=== PATIENT | female | born 1980 | race Caucasian/White ===

== ENCOUNTER 2017-01-24 14:51 | Inpatient (IN) | payer OTHER ==
--- NOTE | ~2017-01-24 | HP ---
Unit #: [id number] #: [id number] Patient: [facility]ARA WARE [id number] [facility] [address] [place] [address] [id number] MR#: [id number] NAME: TARA WARE ROOM: P208 Age: 36 Sex: F Admission Date: 01/24/2017 : 1980 Attending Physician: Oscar Salomon M.D. Admitting Physician: Oscar Salomon M.D. Primary Care Physician: Primary Care Physician No HISTORY AND PHYSICAL HISTORY OF PRESENT ILLNESS Abeba is a 36 year old admitted to [address] [place] [address] with depression verbalizing wanting to hurt herself. She has superficial scratches on her arms. She has had other admissions to this facility. PAST MEDICAL HISTORY 1. Obesity. 2. History of self-harming. PAST SURGICAL HISTORY 1. section x1. 2. Tubal ligation. ALLERGIES No known drug allergies. SOCIAL HISTORY Smokes one-half pack per day. Denies alcohol. Admits to marijuana daily and has a history of abusing methadone. FAMILY HISTORY Medically noncontributory. REVIEW OF SYSTEMS CONSTITUTIONAL: No fever or chills. HEENT: Denies any sore throat, ear pain or runny nose. CARDIOVASCULAR: Denies chest pain, irregular heart rhythm or palpitations. CHEST: Denies shortness of breath or cough. No hemoptysis. GASTROINTESTINAL: Denies nausea, vomiting, diarrhea or chronic constipation. ENDOCRINE: Denies history of increased thirst or urination. No recent significant weight loss or gain. GENITOURINARY: Denies dysuria, frequency, or hematuria. SKIN: Denies any rashes. HEMATOLOGIC: Denies history of increased bleeding or bruising. MUSCULOSKELETAL: Denies any hot, swollen joints. No generalized muscle pain. NEUROLOGIC: Denies problems with vision or speech. No frequent, severe headaches. No numbness, tingling or weakness in any extremities. Denies loss of bladder or bowel control. Unit #: [id number] #: [id number] Patient: TARA WARE CURRENT MEDICATIONS 1. Detox protocol 2. Celexa 20 mg daily PHYSICAL EXAMINATION GENERAL: Alert, well-nourished, in no apparent distress. VITAL SIGNS: Blood pressure 124/74, heart rate 80, respirations 16, temperature 98.6. WEIGHT: 170 pounds. HEIGHT: 5'0". SKIN: Warm and dry without rash. She does have superficial scratches/cuts on her forearm. There is no increased redness, swelling, heat or pus noted. HEENT: Normocephalic. TMs not viewed. Oral and nasal passages clear. Conjunctivae clear. Pupils equal, round and reactive to light and accommodation. Extraocular movements intact. NECK: Supple without lymphadenopathy or thyromegaly. HEART: Regular rate and rhythm without murmur. LUNGS: Clear. ABDOMEN: Soft, nontender. : Not done. EXTREMITIES: No evidence of cyanosis, clubbing or edema. Moves all extremities without focal deficit. NEUROLOGICAL: Grossly within normal limits. Cranial Nerves: II: Visual fox are intact. III, IV AND : Extraocular movements are intact. Pupils are equal, round and reactive to light. V: Facial sensation is grossly normal. VII: Facial movements and expression are normal. VIII: Auditory acuity grossly intact. IX, X: Uvula is midline. Phonation is normal. XI: Patient shrugs shoulders and turns head normally. XII: Tongue protrudes in the midline. Sensory and Motor Function: Sensory and motor sensation is grossly normal. Motor: moves all extremities well. Coordination: Gait is normal. Deep Tendon Reflexes: Intact. IMPRESSION Psychiatric admission RECOMMENDATIONS PSYCHIATRIC: Per psychiatrist. MEDICAL: I see no contraindications to participating in facility's activities. MEDICAL PROGNOSIS Good. MEDICAL CONDITION Stable. Dictated by... Gloria Lopez P.A.-C. for Charmaine Bradley/jennifer Unit #: [id number] #: [id number] Patient: TARA WARE TD: 01/25/2017 19:15 JOB #: [id number] HISTORY AND PHYSICAL Page 1 of 1 X Gloria Lopez HISTORY AND PHYSICAL
--- NOTE | ~2017-01-24 | PA ---
Unit #: [id number] #: [id number] Patient: TARA WARE [id number] [facility] [address] [place] [address] [id number] I MR#: [id number] NAME: TARA WARE ROOM: P208 Age: 36 Sex: F Admission Date: 01/24/2017 : 1980 Date of Assessment: 01/24/2017 Attending Physician: Oscar Salomon M.D. Admitting Physician: Oscar Salomon M.D. Primary Care Physician: Primary Care Physician No PSYCHIATRIC ASSESSMENT DATE OF SERVICE 01/24/2017. IDENTIFYING DATA Ms. Ware is a 36-year-old white female who is a resident of [place], [place] and was self-referred to the hospital on a voluntary basis. CHIEF COMPLAINT "I'm tired of being on heroin, I'm tired of the lifestyle." HISTORY OF PRESENT ILLNESS Ms. Ware is a 36-year-old white female who was self-referred to the hospital stating that she wants to get detox off heroin and that she is tired of being on heroin, "I want to get off it. I'm tired of being depressed. I was seeing a doctor. I could not see the points, so they took me off medication. I have lost my kids, everything. My daughter recently wanted to get into contact with me and if I'm like this I don't know if it happen again." The patient has some superficial cuts on her arms, though she has been cutting herself with a razor and she reports that she had cut on her wrist that she reports was a suicide attempt, but she got scared. She reports that she did that couple days ago. On evaluation by me, the patient was seen to be anxious, withdrawn, depressed, seclusive to herself with blunted affect, minimal interaction, and does endorse increasing stress, financial problems, poor support system, feelings of hopelessness and helplessness, and suicidal ideations, and has history of suicide attempt and reports that she took pills and required hospitalization in the past. SUBSTANCE ABUSE HISTORY The patient has extensive history of substance abuse and dependence including experimentation with cannabis, cocaine, and opioids, and amphetamines, and prescription medications and currently opioids appear to be her drug of choice. She reports that she has been using 0.5 g of heroin a day by snorting it. PAST PSYCHIATRIC HISTORY The patient has had history of inpatient chemical dependency and psychiatric treatment at [facility]. Review of the medical records indicated currently she is not active in any treatment program, is not seeing a psychiatrist, not taking any psychotropic medications. Unit #: [id number] #: [id number] Patient: TARA WARE PAST MEDICAL HISTORY Carpal tunnel syndrome. ALLERGIES No known medication allergies. PERSONAL AND SOCIAL HISTORY A 36-year-old white female who reports that she is single, unemployed, and lives by herself and has poor social support system. MENTAL STATUS EXAMINATION Young white female who was casually dressed with fair personal hygiene, appears to be in no acute distress or discomfort. She was awake and alert on interaction with intact orientation to time, place, and person. Her mood was anxious and depressed with a congruent affect. Her speech was slow and restricted in content. Her thought processes were disorganized with some looseness of associations and suicidal ideations. Her insight and judgment remain significantly impaired. DIAGNOSTIC IMPRESSION Psychiatric: Major depressive disorder, recurrent, moderate, without psychotic features; opioid dependence, moderate and acute withdrawals. Medical: None. Stressors: Moderate psychosocial stressors. TREATMENT PLAN 1. The patient has presented with history of substance abuse and mood disorder, and has been decompensating and will need inpatient hospitalization for safety and stabilization. We will start her back on her home medications and detox protocol will be initiated. We will also consider a trial of antidepressant medication. 2. Supportive therapy was provided to the patient. ESTIMATED LENGTH OF STAY 5 to 7 days. ABILITY TO HELP SELF Limited. WILLINGNESS TO HELP SELF The patient appears to be willing to help self. STRENGTHS 1. Communicative. 2. Cooperative. PROBLEMS 1. Chronic dysphoric symptoms. 2. Poor social support system. DISCHARGE CRITERIA This will be contingent upon the patient's ability to show resolution of her depression and anxiety as well as her ability to stay safe to herself, particularly after discharge from the hospital. Dictated by... Oscar Salomon M.D. Unit #: [id number] #: [id number] Patient: TARA WARE IAA/modl TD: 01/25/2017 23:59 JOB #: [id number] PSYCHIATRIC ASSESSMENT Page 1 of 1 X Oscar Salomon MD PSYCHIATRIC ASSESSMENT
--- NOTE | ~2017-01-24 | DS ---
Unit #: [id number] #: [id number] Patient: [facility]EL[facility] [id number] [facility] [address] [place] [address] [id number] I MR#: [id number] NAME: TARA SELBY ROOM: [facility] Age: 36 Sex: F Admission Date: 01/24/2017 : 1980 Discharge Date: 01/27/2017 Attending Physician: Oscar Salomon M.D. Primary Care Physician: Primary Care Physician No DISCHARGE SUMMARY IDENTIFYING DATA Ms. Selby is a 36-year-old white female, who was self-referred to the hospital. DISCHARGE DIAGNOSES Psychiatric: Major depressive disorder, recurrent, moderate, without psychotic features; opioid dependence, moderate and acute withdrawals. Medical: None. Stressors: Moderate psychosocial stressors. HISTORY OF PRESENT ILLNESS Please see initial psychiatric evaluation for details. PAST PSYCHIATRIC HISTORY Please see initial psychiatric evaluation for details. PAST MEDICAL HISTORY Please see initial psychiatric evaluation for details. HOSPITAL COURSE The patient was admitted to the adult chemical dependency and psychiatric unit at [facility] and was oriented to the hospital environment. Routine p.r.n. medications were initiated, and she was started back on her home medications and was closely monitored. She was started on Celexa for depression and later Seroquel was added and opioid detox protocol was maintained. She was compliant with treatment recommendation and was taking medications regularly and was tolerating them fairly well and was able to show a decent and therapeutic response with improvement in depression and anxiety and was able to come out of the detox without any complications and was willing to continue treatment on an outpatient basis and as such, it was decided that she will be continued on her current medications and will be discharged home and will continue treatment on an outpatient basis. DISCHARGE MEDICATIONS Celexa 20 mg a day for depression and Seroquel 100 mg at bedtime for depression. DISCHARGE CONDITION Stable. PROGNOSIS Fair. Unit #: [id number] #: [id number] Patient: TARA SELBY Dictated by... Charmaine Braga/modl TD: 02/24/2017 23:18 JOB #: [id number] DISCHARGE SUMMARY Page 1 of 1 X Oscar Salomon MD DISCHARGE SUMMARY
--- NOTE | ~2017-01-24 | PN ---
Unit #: [id number] #: [id number] Patient: TARA SELBY [id number] [facility] [address] [place] [address] [id number] I MR#: [id number] NAME: TARA SELBY ROOM: P208 Age: 36 Sex: F Admission Date: 01/24/2017 : 1980 Attending Physician: Oscar Salomon M.D. Admitting Physician: Oscar Salomon M.D. Primary Care Physician: Primary Care Physician Clayr GARAY PROGRESS NOTES DATE January 26, 2017 DISCUSSION Ms. Selby is a 36-year-old white female, who was seen today and chart was reviewed and the case was discussed with the staff. The patient has been anxious, withdrawn, and depressive and was seclusive to herself. Meanwhile, she has been cooperative with the treatment recommendations and she has been taking the medications and tolerating them fairly well. MENTAL STATUS EXAMINATION Young white female, who was casually dressed with fair personal hygiene and appears to be in no acute distress or discomfort. She was awake and alert on interaction with intact orientation. Her mood was anxious and depressed with a congruent affect. Her speech is slow and goal-directed. She denies any suicidal or homicidal ideations, and also denies any auditory or visual hallucinations. Her insight and judgment remain slightly impaired. TREATMENT PLAN 1. We will continue her on her current medications and treatment protocol, and will monitor her response to the medications, and make further adjustments as needed. 2. We will continue to followup. Dictated by... Charmaine Braga/eduard TD: 01/26/2017 11:20 JOB #: [id number] Unit #: [id number] #: [id number] Patient: TARA SELBY PEASALTY PROGRESS NOTES Page 1 of 1 X Oscar Salomon MD PROGRESS NOTE
--- NOTE | ~2017-01-24 | PN ---
Unit #: [id number] #: [id number] Patient: TARA SELBY [id number] [facility] [address] [place] [address] [id number] I MR#: [id number] NAME: TARA SELBY ROOM: P208 Age: 36 Sex: F Admission Date: 01/24/2017 : 1980 Attending Physician: Oscar Salomon M.D. Admitting Physician: Oscar Salomon M.D. Primary Care Physician: Primary Care Physician Clary GARAY PROGRESS NOTES DATE 01/27/2017 DISCUSSION Ms. Selby is a 36-year-old white female with substance abuse and mood disorder who was seen today and chart was reviewed and case was discussed with the staff. She reports doing fairly well and has been showing improvement in her depression and anxiety. Meanwhile, she has been cooperative with treatment recommendations as she has been taking the medications and tolerating them fairly well with no reported side effects. MENTAL STATUS EXAMINATION Young white female who was casually dressed with fair personal hygiene, appears to be in no acute distress or discomfort. She was awake and alert on interaction with intact orientation. Her mood was anxious with congruent affect. Her speech was slow and goal-directed. She denies any suicidal or homicidal ideations. Her insight and judgement remains slightly impaired. TREATMENT PLAN 1. We will continue her on her current medications and treatment protocol. We will monitor her response to the medication and make further adjustments as needed. 2. We will continue to follow up. Dictated by... Charmaine Braga/jennifer TD: 01/28/2017 02:11 JOB #: [id number] Unit #: [id number] #: [id number] Patient: TARA SELBY PROGRESS NOTES Page 1 of 1 X Oscar Salomon MD PROGRESS NOTE
--- NOTE | ~2017-01-24 | PN ---
Unit #: [id number] #: [id number] Patient: TARA SELBY [id number] [facility] [address] [place] [address] [id number] I MR#: [id number] NAME: TARA SELBY ROOM: P208 Age: 36 Sex: F Admission Date: 01/24/2017 : 1980 Attending Physician: Oscar Salomon M.D. Admitting Physician: Oscar Salomon M.D. Primary Care Physician: Primary Care Physician Clary GARAY PROGRESS NOTES DATE January 25, 2017 DISCUSSION Ms. Selby is a 36-year-old white female, who was seen today and chart was reviewed and the case was discussed with the staff. She remains anxious, withdrawn, and depressed and rather seclusive to herself. Meanwhile, she has been cooperative with the treatment recommendations and she has been taking the medications and tolerating them fairly well with no reported side effects. MENTAL STATUS EXAMINATION Young white female, who was casually dressed with fair personal hygiene and appears to be in no acute distress or discomfort. She was awake and alert on interaction with intact orientation. Her mood was anxious with a congruent affect. Her speech is slow and goal-directed. She denies any suicidal or homicidal ideations. Her insight and judgment remain slightly impaired. TREATMENT PLAN 1. We will continue her on her current medications and treatment protocol, and will monitor her response to the medications, and make further adjustments as needed. 2. We will continue to followup. Dictated by... Charmaine Braga/eduard TD: 01/26/2017 11:11 JOB #: [id number] Unit #: [id number] #: [id number] Patient: TARA SELBY PROGRESS NOTES Page 1 of 1 X Oscar Salomon MD X PROGRESS NOTE
[2017-01-25 09:42] LABS: URINE APPEARANCE CLEAR; URINE BILIRUBIN NEG (NEG); URINE BLOOD NEG (NEG); URINE COLOR YELLOW; URINE GLUCOSE NEG (NEG); URINE KETONE NEG (NEG); URINE LEUKOCYTE ESTERASE NEG (NEG); URINE NITRATE NEG (NEG); URINE PH 6.5 (5-8); URINE PROTEIN NEG (NEG); URINE SPECIFIC GRAVITY 1.007 (1.003-1.035); URINE UROBILINOGEN 0.2 MG/DL (NEG)
[2017-01-25 10:04] LABS: THYROID STIMULATING HORMONE 0.79 uIU/ml (0.34-5.60)
[2017-01-25 10:11] LABS: FREE THYROXIN (T4) 0.77 ng/dL (0.58-1.64)
[2017-01-25 10:22] LABS: AMPHETAMINE NEG (NEG); BARBITURATES NEG (NEG); BENZODIAZEPINES NEG (NEG); COCAINE NEG (NEG); MARIJUANA POS (NEG); OPIATES POS (NEG); TRICYCLIC ANTIDEPRESSANTS NEG (NEG); U METHADONE NEG (NEG)
== END 2017-01-27 13:15 | DRG 885 ==
LOC: P2S 14:51
PROVIDERS: Psychiatry & Neurology Psychiatry
PROC: HZ2ZZZZ Detoxification Services for Substance Abuse Treatment (ICD-10-PCS; principal; 2017-01-24)
DX: F33.1 Major depressive disorder, recurrent, moderate (principal); F11.23 Opioid dependence with withdrawal; F41.9 Anxiety disorder, unspecified; E66.9 Obesity, unspecified
CPT/HCPCS: 80307; 81003; 84439; 84443; 84703; 86592

== ENCOUNTER 2017-02-06 09:50 | Inpatient (IN) | payer OTHER ==
--- NOTE | ~2017-02-06 | OR ---
Unit #: [id number] #: [id number] Patient: TARA WARE [id number] [address] [address] [id number] I MR#: [id number] NAME: TARA WARE ROOM: [facility] Date of Procedure: 02/07/2017 Admission Date: 02/06/2017 Surgeon: Rolando Dukes M.D. : 1980 Attending Physician: Sebastian Wynn M.D. Primary Care Physician: Primary Care Physician No OPERATIVE REPORT PREOPERATIVE DIAGNOSIS Left flank abscess. POSTOPERATIVE DIAGNOSIS 12 cm x 4 cm left flank abscess. PROCEDURES PERFORMED Incision and drainage and sharp knife debridement down to muscle fascia of left flank abscess. ANESTHESIA General anesthesia. ESTIMATED BLOOD LOSS Minimal. IV FLUIDS 400 crystalloid. COMPLICATIONS None. INDICATIONS FOR PROCEDURE The patient is a 36-year-old, who presents with an abscess in her left flank. She presents for debridement. DESCRIPTION OF PROCEDURE The patient was taken to the operating theater and placed in a supine position. General anesthesia was induced. Her left flank was prepped and draped. A 12-cm incision was then made, carried down through the superficial tissues down to a pocket of purulence. This was carried down to the muscle fascia and debrided all necrotic tissue. Cultures were obtained. I then washed out with normal saline and packed with Betadine. The patient tolerated the procedure well and was sent to recovery room in good condition. Dictated by... Charmaine GarzonO/guyl Unit #: [id number] #: [id number] Patient: TARA WARE TD: 02/08/2017 02:27 JOB #: [id number] OPERATIVE REPORT Page 1 of 1 X Rolando Dukes MD X PROCEDURE OPERATIVE NOTE
--- NOTE | ~2017-02-06 | DS ---
Unit #: [id number] #: [id number] Patient: TARA WARE [id number] [facility] [address] [facility]. [place], [place] [address] [id number] I MR#: [id number] NAME: TARA WARE ROOM: [facility] Age: 36 Sex: F Admission Date: 02/06/2017 : 1980 Discharge Date: 02/10/2017 Attending Physician: Sebastian Wynn M.D. Primary Care Physician: No Primary Care Physician DISCHARGE SUMMARY DISCHARGE DIAGNOSES 1. Left torso abscess. 2. Sepsis. 3. Cellulitis. 4. Hypokalemia. 5. Substance abuse. 6. Mood disorder. HOSPITAL COURSE The patient is a 36-year-old female who presented to [facility] secondary to an abscess in her left side. It started out as a small "pimple" and increased in size until it became red and very painful. She attempted to lorrie it herself and it had a small amount of drainage but it never resolved. As a result, she came to the emergency department. The patient was seen by [facility] and underwent incision and drainage. Ultimately, cultures have grown MRSA susceptible to Bactrim, Zyvox, clinda, tetracycline. As a result, the patient is being discharged home on six more days of Bactrim which will complete a ten day course. DISCHARGE MEDICATIONS 1. Bactrim DS one p.o. b.i.d. x6 days. 2. Landing 7.5/325, one p.o. q.4 hours p.r.n. FOLLOWUP The patient should followup with [facility] in two weeks. Dictated by... Sebastian Wynn M.D. AMY/jeromy TD: 02/10/2017 12:32 JOB #: [id number] Unit #: [id number] #: [id number] Patient: TARA WARE DISCHARGE SUMMARY Page 1 of 1 X Sebastian Wynn MD DISCHARGE SUMMARY
--- NOTE | ~2017-02-06 | HP ---
Unit #: [id number] #: [id number] Patient: WARETARA X Rolando Dukes MD HISTORY AND PHYSICAL
--- NOTE | ~2017-02-06 | HP ---
Unit #: [id number] #: [id number] Patient: TARA WARE [id number] [address] [place], [place] [address] [id number] MR#: [id number] NAME: TARA WARE ROOM: Age: 36 Sex: F Admission Date: 02/06/2017 : 1980 Attending Physician: Sunshine Castanon P.A.-C. Primary Care Physician: No Primary Care Physician HISTORY AND PHYSICAL CHIEF COMPLAINT Abscess left side. HISTORY OF PRESENT ILLNESS The patient is a 36-year-old female with a past medical history of substance abuse and mood disorder who presented to the emergency department for evaluation of the above. The patient states that one week ago she noticed a "pimple" on the left torso. She states that it has been increasing in size and increasingly red and painful since that time. She states that she tried to lorrie the area. It has intermittently drained yellow pus. She has not had any fever. She started having nausea and vomiting with the past 24 hours. She denies any diarrhea. No urinary symptoms. In the emergency department she was given vancomycin, Zofran, morphine, as well as one liter of normal saline bolus. She is being admitted to [facility] for evaluation and further treatment. The patient denies ever having a similar problem. PAST MEDICAL HISTORY 1. Admission to [facility] 01[facility]24/2017 through 01/27/2017 for suicidal ideations. 2. Mood disorder with history of self-harm. PAST SURGICAL HISTORY 1. . 2. Carpal tunnel surgery. SOCIAL HISTORY The patient smokes a half to a pack of cigarettes daily. She denies IV drug use. She states that she has snorted heroin in the past. She also uses marijuana. Per Our records, she has a history of abusing methadone. She works with labor work. FAMILY HISTORY Notable for both parents dying of myocardial infarctions. Her mother at the age of 63, her dad at the age of 52. ALLERGIES No noted allergies. HOME MEDICATIONS None. Unit #: [id number] #: [id number] Patient: TARA WARE REVIEW OF SYSTEMS A complete review of systems is negative except as indicated in the HPI. PHYSICAL EXAMINATION VITAL SIGNS: Temperature is 98.6, pulse 97, respirations 16, blood pressure 128/80, oxygen saturation is 98% on room air. GENERAL: The patient is a female who is awake and alert in no acute distress. HEENT: The head is atraumatic. Mucous membranes are dry. NECK: Supple. Trachea is midline. CARDIOVASCULAR: Regular rate and rhythm. LUNGS: Clear to auscultation bilaterally with no increased work of breathing. ABDOMEN: Soft with bowel sounds present in all four quadrants. EXTREMITIES: Nontender with no pedal edema. NEUROLOGIC: Patient is awake and alert. She follows commands. PSYCH: Mood and affect are normal. The patient is cooperative. SKIN: The anterior and lateral aspects of the left torso demonstrate a large area of erythema and induration that is tender to palpation. There are three linear abrasions consistent with the patient's provided history of attempting to lorrie the area. DIAGNOSTIC STUDIES LABORATORY STUDIES: Complete blood count notable for white blood cell count of 15, lactic acid of 0.9. Basic metabolic panel notable for potassium of 2.9, chloride 95, glucose 122, BUN and creatinine 8 and 0.4 respectively. Urinalysis notable for trace protein, 5-10 red blood cells. Urine tox screen is positive for marijuana and opiates. ASSESSMENT The patient is a 36-year-old female with: 1. Abscess, left torso. The patient received vancomycin in the emergency department. 2. Sepsis with an initial lactic acid of 0.9. 3. Hypokalemia. The patient's potassium is 2.9. 4. Substance abuse, specifically methadone and snorting heroin. The patient states that her last heroin use was more than a month ago. 5. Mood disorder with history of self-harm, recently hospitalized at [facility]. 6. Tobacco abuse. PLAN 1. Admit to med/surg. 2. NPO until seen by [facility]. 3. Consult [facility] regarding abscess. 4. Blood cultures x2. 5. Vancomycin IV with pharmacy to dose. 6. P.r.n. morphine. 7. P.r.n. Zofran. 8. Sepsis protocol. 9. Urine tox screen. 10. Check magnesium level. 11. Potassium magnesium protocol. 12. manager progressive care to consult regarding substance abuse. 13. Check INR. 14. Repeat labs in the morning. 15. SCDs for DVT prophylaxis. Unit #: [id number] #: [id number] Patient: TARA WARE 16. Additional workup and consultants based on above. Dictated by Charmaine Olmedo/cindy TD: 02/06/2017 13:52 JOB #: [id number] HISTORY AND PHYSICAL Page 1 of 1 X Emi Moreno MD X HISTORY AND PHYSICAL
[2017-02-06 10:22] LABS: BASOPHIL% 0.3 % (0-2.5); EOSINOPHIL# 0.1 X10e3 (0-0.7); EOSINOPHIL% 0.8 % (0.0-7.0); HEMATOCRIT 37.9 % (35.0-45.0); HEMOGLOBIN 12.6 gm/dL (12.0-16.0); LYMPHOCYTE# 1.8 X10e3 (1.0-3.5); LYMPHOCYTE% 12.2 % (17.0-45.0); MEAN CELL VOLUME 90.2 FL (83-96); MEAN CORPUSCULAR HGB CONC 33.3 g/dL (30-36); MEAN PLATELET VOLUME 7.8 FL (6.5-11.5); MONOCYTE# 1.4 X10e3 (0-1.0); NEUTROPHIL# 11.7 X10e3 (1.5-7.1); NEUTROPHIL% 77.7 % (40-75); PLATELET COUNT 349 X10e3 (140-420); RED CELL DISTRIBUTION WIDTH 13.3 % (11.0-15.5)
[2017-02-06 10:24] LABS: DIFF IND NO
[2017-02-06 10:58] LABS: CALCIUM SERUM 8.9 mg/dL (8.4-10.2); CREATININE SERUM 0.4 mg/dL (0.6-1.4); GLOM FILT RATE Estimated 135.9 mL/min (>60)
[2017-02-06 10:59] LABS: POTASSIUM 2.9 mmol/L (3.5-5.1)
[2017-02-06 12:06] LABS: URINE SOURCE CLEAN CATCH
[2017-02-06 12:15] LABS: URINE APPEARANCE CLEAR; URINE BLOOD TRACE (NEG); URINE COLOR DK YELLOW; URINE GLUCOSE NEG (NEG); URINE KETONE TRACE (NEG); URINE LEUKOCYTE ESTERASE NEG (NEG); URINE NITRATE NEG (NEG); URINE PROTEIN TRACE (NEG); URINE SPECIFIC GRAVITY 1.024 (1.003-1.035)
[2017-02-06 12:19] LABS: URINE BACTERIA AUWI NEG (NEGATIVE); URINE SQUAMOUS EPITHELIAL CELL FEW /[HPF]
[2017-02-06 12:33] LABS: CULTURE INDICATED? NO
[2017-02-06 12:35] LABS: URINE BILIRUBIN POS (NEG)
[2017-02-06 12:42] LABS: AMPHETAMINE NEG (NEG); BARBITURATES NEG (NEG); BENZODIAZEPINES NEG (NEG); COCAINE NEG (NEG); MARIJUANA POS (NEG); OPIATES POS (NEG); TRICYCLIC ANTIDEPRESSANTS NEG (NEG); U METHADONE NEG (NEG)
[2017-02-06 15:39] LABS: PARTIAL THROMBOPLASTIN TIME 28.9 SECONDS (23.5-31.3)
[2017-02-06] MEDS ORDERED: NO MEDICATIONS (17:17)
[2017-02-07 10:06] LABS: BASOPHIL# 0.1 X10e3 (0-0.3); BASOPHIL% 0.5 % (0-2.5); EOSINOPHIL# 0.3 X10e3 (0-0.7); EOSINOPHIL% 2.6 % (0.0-7.0); HEMATOCRIT 34.1 % (35.0-45.0); HEMOGLOBIN 11.2 gm/dL (12.0-16.0); LYMPHOCYTE# 2.4 X10e3 (1.0-3.5); LYMPHOCYTE% 20.1 % (17.0-45.0); MEAN CELL VOLUME 90.5 FL (83-96); MEAN CORPUSCULAR HEMOGLOBIN 29.7 PG (28-34); MEAN CORPUSCULAR HGB CONC 32.8 g/dL (30-36); MEAN PLATELET VOLUME 7.8 FL (6.5-11.5); MONOCYTE# 1.3 X10e3 (0-1.0); MONOCYTE% 10.9 % (3.0-12.0); NEUTROPHIL# 7.9 X10e3 (1.5-7.1); NEUTROPHIL% 65.9 % (40-75); PLATELET COUNT 339 X10e3 (140-420); RED BLOOD COUNT 3.77 X10e (3.90-5.30); RED CELL DISTRIBUTION WIDTH 13.9 % (11.0-15.5); WHITE BLOOD COUNT 11.9 X10e3 (4.0-10.5)
[2017-02-07 10:10] LABS: DIFF IND NO
[2017-02-07 10:19] LABS: INR 0.9; PARTIAL THROMBOPLASTIN TIME 29.1 SECONDS (23.5-31.3); PROTHROMBIN TIME (PATIENT) 9.7 SECONDS (9.6-11.5)
[2017-02-07 10:40] LABS: ALBUMIN SERUM 2.8 g/dL (3.5-5.0); ALKALINE PHOSPHATASE 62 U/L (32-92); ALT (SGPT) 15 U/L (10-40); AST (SGOT) 13 U/L (10-42); BILIRUBIN,TOTAL 0.4 mg/dL (0.2-2.0); CALCIUM SERUM 8.5 mg/dL (8.4-10.2); CARBON DIOXIDE 29 mmol/L (22-31); CHLORIDE 105 mmol/L (100-111); CREATININE SERUM 0.6 mg/dL (0.6-1.4); GLOM FILT RATE Estimated 118.9 mL/min (>60); GLUCOSE FASTING 98 mg/dL (70-110); POTASSIUM 3.1 mmol/L (3.5-5.1); SODIUM 142 mmol/L (135-145)
[2017-02-07 10:48] LABS: BLOOD UREA NITROGEN <5 mg/dL (9-23); BUN/CREATININE RATIO 8.33
[2017-02-08 04:36] LABS: BLOOD UREA NITROGEN <5 mg/dL (9-23); BUN/CREATININE RATIO 16.66; CALCIUM SERUM 8.3 mg/dL (8.4-10.2); CARBON DIOXIDE 26 mmol/L (22-31); CHLORIDE 109 mmol/L (100-111); CREATININE SERUM 0.3 mg/dL (0.6-1.4); GLOM FILT RATE Estimated 149.4 mL/min (>60); GLUCOSE FASTING 101 mg/dL (70-110); POTASSIUM 3.7 mmol/L (3.5-5.1); SODIUM 142 mmol/L (135-145)
[2017-02-09 03:15] LABS: BASOPHIL% 0.5 % (0-2.5); DIFF IND NO; EOSINOPHIL# 0.4 X10e3 (0-0.7); EOSINOPHIL% 5.3 % (0.0-7.0); HEMATOCRIT 28.8 % (35.0-45.0); HEMOGLOBIN 9.6 gm/dL (12.0-16.0); LYMPHOCYTE# 2.9 X10e3 (1.0-3.5); LYMPHOCYTE% 35.6 % (17.0-45.0); MEAN CELL VOLUME 90.4 FL (83-96); MEAN CORPUSCULAR HEMOGLOBIN 30.1 PG (28-34); MEAN CORPUSCULAR HGB CONC 33.3 g/dL (30-36); MEAN PLATELET VOLUME 7.2 FL (6.5-11.5); MONOCYTE# 0.8 X10e3 (0-1.0); MONOCYTE% 9.6 % (3.0-12.0); PLATELET COUNT 295 X10e3 (140-420); RED BLOOD COUNT 3.19 X10e (3.90-5.30); RED CELL DISTRIBUTION WIDTH 13.7 % (11.0-15.5); WHITE BLOOD COUNT 8.2 X10e3 (4.0-10.5)
[2017-02-09 03:53] LABS: CALCIUM SERUM 8.1 mg/dL (8.4-10.2); CARBON DIOXIDE 26 mmol/L (22-31); CHLORIDE 111 mmol/L (100-111); CREATININE SERUM 0.5 mg/dL (0.6-1.4); GLOM FILT RATE Estimated 126.3 mL/min (>60); GLUCOSE FASTING 113 mg/dL (70-110); POTASSIUM 3.6 mmol/L (3.5-5.1); SODIUM 142 mmol/L (135-145)
[2017-02-09 03:54] LABS: BLOOD UREA NITROGEN <5 mg/dL (9-23)
[2017-02-10 04:55] LABS: BASOPHIL# 0.1 X10e3 (0-0.3); BASOPHIL% 0.6 % (0-2.5); EOSINOPHIL# 0.5 X10e3 (0-0.7); EOSINOPHIL% 5.9 % (0.0-7.0); HEMATOCRIT 30.7 % (35.0-45.0); HEMOGLOBIN 10.4 gm/dL (12.0-16.0); LYMPHOCYTE# 3.5 X10e3 (1.0-3.5); LYMPHOCYTE% 37.7 % (17.0-45.0); MEAN CELL VOLUME 90.6 FL (83-96); MEAN CORPUSCULAR HEMOGLOBIN 30.6 PG (28-34); MEAN CORPUSCULAR HGB CONC 33.8 g/dL (30-36); MONOCYTE# 0.8 X10e3 (0-1.0); NEUTROPHIL# 4.4 X10e3 (1.5-7.1); NEUTROPHIL% 46.8 % (40-75); PLATELET COUNT 344 X10e3 (140-420); RED BLOOD COUNT 3.39 X10e (3.90-5.30); RED CELL DISTRIBUTION WIDTH 13.5 % (11.0-15.5); WHITE BLOOD COUNT 9.4 X10e3 (4.0-10.5)
[2017-02-10 05:17] LABS: DIFF IND NO
[2017-02-10 06:58] LABS: CALCIUM SERUM 8.7 mg/dL (8.4-10.2); CARBON DIOXIDE 27 mmol/L (22-31); CHLORIDE 108 mmol/L (100-111); CREATININE SERUM 0.7 mg/dL (0.6-1.4); GLUCOSE FASTING 90 mg/dL (70-110); POTASSIUM 3.7 mmol/L (3.5-5.1); SODIUM 142 mmol/L (135-145)
[2017-02-10 06:59] LABS: BLOOD UREA NITROGEN <5 mg/dL (9-23); BUN/CREATININE RATIO 7.14
[2017-02-10] MEDS ORDERED: BACTRIM DS TABL1 TA1 PO (12:26)
[2017-02-10] MEDS ORDERED: HYDROCODON-ACE1 EAC9 PO (12:27)
== END 2017-02-10 13:45 | disposition home or self-care (01) | DRG 854 ==
LOC: CED 09:50 → SEDOF 10:50 → CEDOF 15:00 → C4C 02-07 13:00
PROVIDERS: Family Medicine; Internal Medicine; Physician Assistant; Surgery
PROC: 0J980ZZ Drainage of Abdomen Subcutaneous Tissue and Fascia, Open Approach (ICD-10-PCS; principal; 2017-02-07 10:30)
DX: A41.9 Sepsis, unspecified organism (principal); L02.211 Cutaneous abscess of abdominal wall; D62 Acute posthemorrhagic anemia; L03.311 Cellulitis of abdominal wall; F32.9 Major depressive disorder, single episode, unspecified; Z91.5 Personal history of self-harm; F17.210 Nicotine dependence, cigarettes, uncomplicated; E87.6 Hypokalemia; F11.10 Opioid abuse, uncomplicated; F19.10 Other psychoactive substance abuse, uncomplicated; F39 Unspecified mood [affective] disorder; B95.62 Methicillin resistant Staphylococcus aureus infection as the cause of diseases classified elsewhere
CPT/HCPCS: 36415; 80048; 80053; 80202; 80307; 81003; 82947; 83605; 83735; 84132; 85025; 85610; 85730; 87040; 87070; 87075; 87077; 87186; 87205; 96361; 96374; 96375; 99285; J1170; J2270; J2405; J3010; J3370; J3475

== ENCOUNTER 2017-02-14 10:55 | Emergency (ER) | payer OTHER ==
[~2017-02-14 10:55] MED LIST: BACTRIM DS TABL1 TA1 PO; HYDROCODON-ACE1 EAC9 PO; NO MEDICATIONS
== END 2017-02-14 13:00 | disposition home or self-care (01) ==
LOC: CED 10:55
DX: G89.18 Other acute postprocedural pain (principal); R07.89 Other chest pain; F32.9 Major depressive disorder, single episode, unspecified
CPT/HCPCS: 96372; 99283; J2270

== ENCOUNTER 2017-03-01 20:01 | Emergency (ER) | payer OTHER | END 2017-03-01 20:20 | disposition home or self-care (01) | LOC: CFTX 20:01 | DX: Z48.01 Encounter for change or removal of surgical wound dressing (principal); F32.9 Major depressive disorder, single episode, unspecified; F17.210 Nicotine dependence, cigarettes, uncomplicated; Z98.890 Other specified postprocedural states | CPT/HCPCS: 99282 ==